=== PATIENT | female | born 1975 | race Caucasian/White ===

== ENCOUNTER 2020-06-30 11:03 | Emergency (ER) | payer SELFPAY ==
--- NOTE | 2020-06-30 12:55 | ER Document Report ---
ED General - General Chief Complaint: Dizziness Stated Complaint: SHORT OF BREATH,NAUSEA,PALPITATIONS Time Seen by Provider: 06/30/20 12:55 - HPI Notes: 45-year-old female presents with dizziness. Patient states that she is having really bad vertigo. She has had vertigo before. She describes a room spinning sensation when she turns her head. She had onset last night, states that hit me really hard. During the initial onset of vertigo she felt her heart racing and had some shortness of breath. This is now resolved. She states that she feels like she has fluid in her ears. She typically in the past has taken a decong estant when she has fluid which normally helps. She currently denies chest pain or shortness of breath. Denies cough. Also complains of nasal congestion. - Related Data Allergies/Adverse Reactions: Penicillins Allergy (Verified 06/30/20 12:29) Sulfa (Sulfonamide Antibiotics) Allergy (Verified 06/30/20 12:29) Past Medical History - General Information source: Patient - Social History Smoking Status: Never Smoker Frequency of alcohol use: None Drug Abuse: None Family History: Reviewed & Not Pertinent Patient has homicidal ideation: No Review of Systems - Review of Systems Constitutional: denies: Fever EENT: Sinus pressure, Vertigo Cardiovascular: denies: Chest pain Respiratory: denies: Short of breath Gastrointestinal: denies: Abdominal pain Genitourinary: No symptoms reported Female Genitourinary: No symptoms reported Musculoskeletal: No symptoms reported Skin: No symptoms reported Hematologic/Lymphatic: No symptoms reported Neurological/Psychological: denies: Weakness Physical Exam - Vital signs Vitals: Temp Pulse Resp BP Pulse Ox 98.1 F 90 18 125/91 H 100 06/30/20 12:15 06/30/20 12:15 06/30/20 12:15 06/30/20 12:15 06/30/20 12:15 - General General appearance: Appears well In distress: None - HEENT Head: Normocephalic, Atraumatic Extraocular movements intact: Yes Pupils: PERRL Tympanic membrane: Other - Bilateral TMs exhibit dullness and fluid level. No erythema or injection. Nasal: Other - Mucosal edema Mucous membranes: Moist - Respiratory Breath sounds: Normal - Cardiovascular Rhythm: Regular Heart sounds: Normal auscultation - Abdominal Bowel sounds: Normal - Extremities General upper extremity: Normal inspection General lower extremity: Normal inspection. No: Edema - Neurological Neuro grossly intact: Yes Cognition: Normal Orientation: AAOx4 Cranial nerves: Normal Cerebellar coordination: Normal Motor strength normal: LUE, RUE, LLE, RLE Notes: Recreation of symptoms when turning head to left. No nystagmus. - Psychological Associated symptoms: Normal affect - Skin Skin Temperature: Warm Course - Re-evaluation Re-evalutation: 45-year-old female presents with dizziness described as vertigo. She is neuro intact, no vertical nystagmus, sx created with L head turning. Suspect peripheral vertigo. would not suspect central process given exam. has middle ear effusions which may be attributing. had SOB/CP last night, none now. low suspicion for cardiac etiology. trial meclizine, check labs. 06/30/20 14:27 Labs reviewed. Minimal leukocytosis, possible reactionary. No acute anemia. Electrolytes okay. Creatinine within normal limits. Troponin negative. Given that she experienced the shortness of breath and chest tightness last night and has not occurred since this is sufficient. 06/30/20 14:28 Chest x-ray is negative for acute process 06/30/20 14:33 Into check on patient, she is requesting a decongestant to help with the fluid in her ear. Have ordered pseudoephedrine along with some Toradol. 06/30/20 15:39 Patient reports that her symptoms have improved. She was able to walk to the bathroom without dizziness. I discussed with her continuing decongestants, starting daily allergy medication. Meclizine has been sent to her pharmacy. Return precautions given, stable at time of discharge. - Vital Signs Vital signs: Temp Pulse Resp BP Pulse Ox 98.1 F 90 18 125/91 H 100 06/30/20 12:15 06/30/20 12:28 06/30/20 12:28 06/30/20 12:28 06/30/20 12:28 - Laboratory Result Diagrams: 06/30/20 13:20 06/30/20 13:20 Laboratory results interpreted by me: 06/30/20 06/30/20 13:20 13:20 WBC 12.0 H Absolute Neuts (auto) 9.7 H Seg Neutrophils % 81.3 H Sodium 136.2 L - Diagnostic Test Radiology reviewed: Image reviewed, Reports reviewed - EKG Interpretation by Me Additional EKG results interpreted by me: 06/30/20 16:37 EKG interpreted by me. NSR, narrow QRS, no ST elevation Discharge - Discharge Clinical Impression: Vertigo Condition: Stable Disposition: HOME, SELF-CARE Instructions: Vertigo ([facility]) Additional Instructions: Please use meclizine as needed for vertigo. Please begin daily use of allergy medication, you may also use decongestant. Please follow-up with your primary care doctor. Return to the emergency department for any concerning worsening symptoms. Prescriptions: Meclizine HCl [Antivert 25 mg Tablet] 25 mg PO TID PRN #21 tablet PRN Reason:
[2020-06-30] MEDS ORDERED: MECLIZINE HCL 25 MG TABLET PO ONE (13:15)
[2020-06-30 13:38] LABS: ABSOLUTE EOSINOPHILS # (AUTO) 0.1 10^3/uL (0.0-0.6); ABSOLUTE LYMPHOCYTES (AUTO) 1.6 10^3/uL (0.5-4.7); ABSOLUTE MONOCYTES (AUTO) 0.6 10^3/uL (0.1-1.4); ABSOLUTE NEUT (AUTO) 9.7 10^3/uL (1.7-8.2); BASOPHILS % (AUTO) 0.3 % (0-2); EOSINOPHILS % (AUTO) 0.6 % (0-6); HEMATOCRIT 41.2 % (36.0-47.0); HEMOGLOBIN 13.9 g/dL (12.0-15.5); LYMPHOCYTES % (AUTO) 13.1 % (13-45); MEAN CORPUSCULAR HEMOGLOBIN 31.1 pg (27.0-33.4); MEAN CORPUSCULAR HGB CONC 33.8 g/dL (32.0-36.0); MEAN CORPUSCULAR VOLUME 92 fl (80-97); MONOCYTES % (AUTO) 4.7 % (3-13); PLATELET COUNT 303 10^3/uL (150-450); RED BLOOD COUNT 4.47 10^6/uL (3.72-5.28); RED CELL DISTRIBUTION WIDTH 13.1 % (11.5-14.0); SEGMENTED NEUTROPHILS % (AUTO) 81.3 % (42-78); TOTAL CELLS COUNTED % (AUTO) 100 %
--- NOTE | 2020-06-30 13:52 | RADIOLOGY REPORT (SQ) ---
EXAM DESCRIPTION: CHEST SINGLE VIEW IMAGES COMPLETED DATE/TIME: 06/30/2020 1:38 pm REASON FOR STUDY: shortness of breath COMPARISON: None. EXAM PARAMETERS: NUMBER OF VIEWS: One view. TECHNIQUE: Single frontal radiographic view of the chest acquired. RADIATION DOSE: NA LIMITATIONS: None. FINDINGS: LUNGS AND PLEURA: No opacities, masses or pneumothorax. No pleural effusion. MEDIASTINUM AND HILAR STRUCTURES: No masses. Contour normal. HEART AND VASCULAR STRUCTURES: Heart normal in size. Normal vasculature. BONES: No acute findings. HARDWARE: None in the chest. OTHER: No other significant finding. IMPRESSION: NO ACUTE RADIOGRAPHIC FINDING IN THE CHEST. TECHNICAL DOCUMENTATION: JOB ID: [id number] 2010 [employer]- All Rights Reserved Reading location - IP/workstation name: [email or web address]
[2020-06-30 14:02] LABS: ANION GAP 8 (5-19); BLOOD UREA NITROGEN 11 mg/dL (7-20); CALCIUM 9.3 mg/dL (8.4-10.2); CARBON DIOXIDE 25 mmol/L (22-30); CHLORIDE 103 mmol/L (98-107); GLUCOSE 95 mg/dL (75-110); POTASSIUM 3.9 mmol/L (3.6-5.0)
[2020-06-30] MEDS ORDERED: PSEUDOEPHEDRINE HCL 30 MG TABLET PO ONE (14:32)
[2020-06-30] MEDS ORDERED: KETOROLAC TROMETHAMINE INJ/PF 30 MG/1 ML SDV IV ONE (14:32)
[2020-06-30 15:50] VITALS: BP 116/92
--- NOTE | 2020-06-30 21:58 | EKG REPORT ---
SEVERITY:- BORDERLINE ECG - SINUS RHYTHM PROBABLE LEFT ATRIAL ABNORMALITY : Confirmed by: Joanie Martinez MD 30-Jun-2020 21:57:30
== END 2020-06-30 15:51 | disposition home or self-care (01) ==
LOC: ER 11:03
DX: R42 Dizziness and giddiness (principal); R09.81 Nasal congestion; R06.02 Shortness of breath; D72.829 Elevated white blood cell count, unspecified; Z88.0 Allergy status to penicillin; Z88.2 Allergy status to sulfonamides
CPT/HCPCS: 93005; 99285; 96374; 36415; 85025; 80048; 84484; 71045; 93010; J1885